=== PATIENT | female | born 1965 | race Two or more races ===

== ENCOUNTER 2018-09-24 16:27 | Emergency (ER) | payer OTHER ==
[~2018-09-24] VITALS: Ht 152.4 cm; Wt 45.4 kg
== END 2018-09-24 20:34 | disposition home or self-care (01) ==
LOC: ER 16:27
DX: R42 Dizziness and giddiness (principal); T40.7X5A Adverse effect of cannabis (derivatives), initial encounter; Y92.89 Other specified places as the place of occurrence of the external cause